=== PATIENT | female | born 1990 | race Caucasian/White ===

== ENCOUNTER 2017-08-23 23:18 | Emergency (ER) | payer SELFPAY ==
[2017-08-23] MEDS ORDERED: NS 1,000 ML IV ONE ×2 (23:39)
[2017-08-23] MEDS ORDERED: PROMETHAZINE HCL 25 MG/ML INJ IVP ONE (23:39)
--- NOTE | 2017-08-23 23:39 | EDPHY ---
H & P Stated Complaint: n, vomiting all day, abd pain Source: Patient Exam Limitations: No limitations - Personal History LMP (Females 10-55): Irregular Current Tetanus Diphtheria and Acellular Pertussis (TDAP): Yes - Medical/Surgical History Hx Asthma: No Hx Chronic Respiratory Disease: No Hx Diabetes: No Hx Cardiac Disease: No Hx Renal Disease: No Hx Cirrhosis: No Hx Alcoholism: No Hx HIV/AIDS: No Hx Splenectomy or Spleen Trauma: No Other PMH: denies - Social History Smoking Status: Never smoked Time Seen by Provider: 08/23/17 23:38 HPI/ROS: HPI: This is a 27-year-old female who presents with Chief Complaint: n, vomiting all day, abd pain Location: Left flank Quality: Sharp, constant pain Duration: starting at 7:00 a.m. Signs and Symptoms: no fever, + nausea, + vomiting, no hematemesis, no blood in stool, no abdominal bloating, no diarrhea, no back pain, no urinary symptoms, no vaginal bleeding/discharge, no indigestion, no chest pain, no shortness of breath Timing: Acute, constant Severity: 11/20 Context: Patient presents with sudden onset of constant, nonradiating left flank pain that started around 7:00 a.m. This morning accompanied by nausea and vomiting of bile and stomach contents x5 to 6 times. Has irregular menses. Patient has a history of IBS an appendectomy. She also states that she has kidney stones but "they are never seen on CT scan." Patient denies any urinary symptoms, hematuria, burning with urination. She has not ate or drank anything today. Patient reports that she had a normal bowel movement yesterday. Patient reports that she is under considerable stress which makes her IBS flare as she recently moved to the area from [facility] in the process of trying to find a job. She reports that Phenergan tends to help her more than Zofran. She is extremely concerned about cost. No recent antibiotic use. Modifying Factors: None Comment: ROS: see HPI Constitutional: No fever, no chills, no weight loss Eyes: No blurred vision Respiratory: No shortness of breath, no cough Cardiovascular: No chest pain, no palpitations Gastrointestinal: + nausea, + vomiting, no diarrhea, no hematemesis, no blood in stool Genitourinary: No dysuria, no blood in urine Extremities: No myalgias, no edema Neurologic: No weakness, no numbness Skin: No rashes, no petechiae Hematologic: No bruising, no bleeding MEDICAL/SURGICAL/SOCIAL HISTORY: Medical history: Irritable bowel syndrome Surgical history: Appendectomy Social history: Single. Nonsmoker. Patient is originally from [place]. Family history noncontributory. CONSTITUTIONAL: Patient is buccal over and position crying on the ER stretcher, nontoxic in appearance awake and alert, no obvious distress HEENT: Atraumatic and normocephalic, PERRL, EOMI. Nares patent; no rhinorrhea; no nasal mucosal edema. Tympanic membranes clear. Oropharynx clear, no exudate and moist pink mucosa. Airway patent. No lymphadenopathy. No meningismus. Cardiovascular: Normal S1/S2, regular rate, regular rhythm, without murmur rub or gallop. PULMONARY/CHEST: Symmetrical and nontender. Clear to auscultation bilaterally. Good air movement. No accessory muscle usage. ABDOMEN: Soft, nondistended, left flank moderate tenderness, no rebound, no guarding, no peritoneal signs, no masses or organomegaly. + left CVAT. Bowel sounds heard x4 quadrants EXTREMITIES: 2/2 pulses, strength 5/5, no deformities, no clubbing, no cyanosis or edema. NEUROLOGICAL: no focal neuro deficits. GCS 15. SKIN: Warm and dry, no erythema. no rash. Good capillary refill. (Brigitte Garces) Constitutional: Initial Vital Signs Temperature (C) 36.3 C 08/23/17 23:20 Heart Rate 80 08/23/17 23:20 Respiratory Rate 20 08/23/17 23:20 Blood Pressure 132/95 H 08/23/17 23:20 O2 Sat (%) 96 08/23/17 23:20 O2 Delivery Mode Room Air O2 (L/minute) 2 Allergies/Adverse Reactions: No Known Allergies Allergy (Unverified 08/23/17 23:20) Home Medications: Medication Instructions Recorded Dicyclomine [Bentyl 20 MG (*)] 20 mg PO QID PRN #12 tab 08/24/17 Promethazine HCl [Phenergan 25mg 25 mg PO Q6 PRN #12 tab 08/24/17 (*)] Medical Decision Making ED Course/Re-evaluation: Urinalysis, labs, IV fluids, CT abdomen and pelvis scan without contrast, IV medications ordered Vital signs reviewed upon arrival and are stable. No systemic signs. 2350: Patient given 1 L normal saline, IV promethazine 12.5 mg, IV Haldol 2.5 mg 0038: Labs reviewed. No signs of anemia/platelet dysfunction/JIMBO/elevated LFTs /electrolyte imbalance/pancreatitis. WBC 11.43 K with left shift. 0100: Called by radiologist who advised that CT abdomen and pelvis scan shows no acute abdominal process. 0115: Notified by nurse that patient had just called to report that her pain is returning in her left flank. Patient still has not given urine sample. 0136: Reassessed patient who is sleeping soundly. Upon waking her up patient complains of having nausea. I gave her IV promethazine 12.5 mg as well as a prepack for Promethazine and Bentyl to be discharged home. She will establish care at the [facility]. Patient is still refusing to give urine sample. This patient was seen under the supervision of my secondary supervising physician. I evaluated care for this patient independently. Discussed this patient with Dr. Murillo. (Brigitte Garces) PHYSICIAN DOCUMENTATION: The patient was evaluated and managed by the Physician Bundle Breaker. My co- signature indicates that I have reviewed this chart and I agree with the findings and plan of care as documented. I am the secondary supervising physician. (Faiza Murillo) Differential Diagnosis: Flank pain including but not limited to musculoskeletal causes, kidney stone, pyelonephritis, shingles, and intra-abdominal causes such as diverticulitis and appendicitis. (Brigitte Garces) - Data Points Laboratory Results: Laboratory Results 08/24/17 00:01 08/24/17 00:01 08/24/17 08/24/17 08/24/17 00:01 00:01 00:01 WBC 11.43 10^3/uL H 10^3/uL (3.80-9.50) RBC 4.51 10^6/uL 10^6/uL (4.18-5.33) Hgb 13.5 g/dL g/dL (12.6-16.3) Hct 39.8 % % (38.0-47.0) MCV 88.2 fL fL (81.5-99.8) MCH 29.9 pg pg (27.9-34.1) MCHC 33.9 g/dL g/dL (32.4-36.7) RDW 13.2 % % (11.5-15.2) Plt Count 357 10^3/uL 10^3/uL (150-400) MPV 10.8 fL fL (8.7-11.7) Neut % (Auto) 87.7 % H % (39.3-74.2) Lymph % (Auto) 9.1 % L % (15.0-45.0) [place] % (Auto) 2.8 % L % (4.5-13.0) Eos % (Auto) 0.0 % L % (0.6-7.6) Baso % (Auto) 0.1 % L % (0.3-1.7) Nucleat RBC Rel Count 0.0 % % (0.0-0.2) Absolute Neuts (auto) 10.03 10^3/uL H 10^3/uL (1.70-6.50) Absolute Lymphs (auto) 1.04 10^3/uL 10^3/uL (1.00-3.00) Absolute Monos (auto) 0.32 10^3/uL 10^3/uL (0.30-0.80) Absolute Eos (auto) 0.00 10^3/uL L 10^3/uL (0.03-0.40) Absolute Basos (auto) 0.01 10^3/uL L 10^3/uL (0.02-0.10) Absolute Nucleated RBC 0.00 10^3/uL 10^3/uL (0-0.01) Immature Gran % 0.3 % % (0.0-1.1) Immature Gran # 0.03 10^3/uL 10^3/uL (0.00-0.10) Sodium 142 mEq/L mEq/L (135-145) Potassium 3.7 mEq/L mEq/L (3.3-5.0) Chloride 103 mEq/L mEq/L (97-110) Carbon Dioxide 21 mEq/l L mEq/l (22-31) Anion Gap 18 mEq/L H mEq/L (8-16) BUN 14 mg/dL mg/dL (7-23) Creatinine 0.6 mg/dL mg/dL (0.6-1.0) Estimated GFR > 60 Glucose 137 mg/dL H mg/dL (70-100) Calcium 10.2 mg/dL mg/dL (8.5-10.4) Total Bilirubin 0.6 mg/dL mg/dL (0.1-1.4) Conjugated Bilirubin 0.2 mg/dL mg/dL (0.0-0.5) Unconjugated Bilirubin 0.4 mg/dL mg/dL (0.0-1.1) AST 23 IU/L IU/L (14-46) ALT 23 IU/L IU/L (9-52) Alkaline Phosphatase 88 IU/L IU/L (38-126) Total Protein 8.4 g/dL H g/dL (6.3-8.2) Albumin 4.9 g/dL g/dL (3.5-5.0) Lipase 39 IU/L IU/L (23-300) Beta HCG, Qual NEGATIVE Medications Given: Discontinued Medications Dicyclomine HCl (Bentyl) 20 mg PO EDNOW ONE Stop: 08/24/17 01:38 Last Admin: 08/24/17 02:07 Dose: 20 mg Haloperidol Lactate (Haldol Injection) 2.5 mg IVP EDNOW ONE Stop: 08/23/17 23:48 Last Admin: 08/23/17 23:58 Dose: 2.5 mg Sodium Chloride (Ns) 1,000 mls @ 0 mls/hr IV EDNOW ONE; Wide Open PRN Reason: Protocol Stop: 08/23/17 23:40 Last Admin: 08/23/17 23:58 Dose: 1,000 mls Sodium Chloride (Ns) 1,000 mls @ 0 mls/hr IV EDNOW ONE; Wide Open PRN Reason: Protocol Stop: 08/23/17 23:40 Last Admin: 08/23/17 23:59 Dose: 1,000 mls Ketorolac Tromethamine (Toradol) 15 mg IVP EDNOW ONE Stop: 08/24/17 01:16 Last Admin: 08/24/17 01:16 Dose: 15 mg Ondansetron HCl (Zofran Odt) 4 mg PO EDNOW ONE Stop: 08/24/17 02:38 Last Admin: 08/24/17 02:43 Dose: Not Given Ondansetron HCl (Zofran) 4 mg IVP EDNOW ONE Stop: 08/24/17 02:42 Last Admin: 08/24/17 02:42 Dose: 4 mg Promethazine HCl (Phenergan) 12.5 mg IVP EDNOW ONE Stop: 08/23/17 23:40 Last Admin: 08/23/17 23:58 Dose: 12.5 mg Promethazine HCl (Phenergan) 12.5 mg IVP ONCE ONE Stop: 08/24/17 01:36 Last Admin: 08/24/17 01:41 Dose: 12.5 mg Promethazine HCl (Phenergan 25 Mg Prepack #4) 1 btl TAKEHOME EDNOW ONE Stop: 08/24/17 02:37 Last Admin: 08/24/17 02:42 Dose: 1 btl Departure - Departure Disposition: Home, Routine, Self-Care Clinical Impression: Chronic abdominal pain, Acute left flank pain IBS (irritable bowel syndrome) Qualifiers: Irritable bowel syndrome type: unspecified Qualified Code(s): K58.9 - Irritable bowel syndrome without diarrhea Condition: Good Instructions: Promethazine (Into the rectum), Abdominal Pain (ED), Chronic Abdominal Pain (ED) Additional Instructions: Consume a minimum of 8-10 glasses of water or electrolyte fluid replacement drinks that include Gatorade, Powerade, Pedialyte. Eat a bland diet for the next 48 hours and then slowly advance as tolerated. Take promethazine 1 tab every 6 hours as needed for nausea, vomiting. Take Bentyl every 6 hr as needed for GI distress. Establish care with primary care provider at [facility]. Referrals: [facility],. [Clinic] - As per Instructions Prescriptions: Dicyclomine [Bentyl 20 MG (*)] 20 mg PO QID PRN #12 tab PRN Reason: Gi Distress Promethazine HCl [Phenergan 25mg (*)] 25 mg PO Q6 PRN #12 tab PRN Reason: Nausea/Vomiting, Use 1st
[2017-08-23] MEDS ORDERED: HALOPERIDOL LACT 5 MG/ML INJ IVP ONE (23:47)
[2017-08-24 00:16] LABS: PLATELET COUNT 357 10^3/uL (150-400)
[2017-08-24] MEDS ORDERED: KETOROLAC 15 MG/1 ML SDV ONE (01:15)
[2017-08-24] MEDS ORDERED: KETOROLAC 15 MG/1 ML SDV IVP ONE (01:15)
[2017-08-24] MEDS ORDERED: PROMETHAZINE HCL 25 MG/ML INJ IVP ONE (01:35)
[2017-08-24] MEDS ORDERED: DICYCLOMINE 10 MG CAP PO ONE (01:37)
[2017-08-24] MEDS ORDERED: PROMETHAZINE 25 MG PREPACK #4 BTL TAKEHOME ONE (02:36)
[2017-08-24] MEDS ORDERED: ONDANSETRON DISINTEGRATING 4 MG TAB PO ONE (02:37)
[2017-08-24] MEDS ORDERED: ONDANSETRON 4 MG/2 ML VIAL ONE (02:40)
[2017-08-24] MEDS ORDERED: ONDANSETRON 4 MG/2 ML VIAL IVP ONE (02:41)
[2017-08-24 03:11] VITALS: BP 127/80
== END 2017-08-24 03:08 | disposition home or self-care (01) ==
DX: K58.9 Irritable bowel syndrome, unspecified (principal); G89.29 Other chronic pain; E86.9 Volume depletion, unspecified
CPT/HCPCS: 96374; J1630; J1885; J2405; J2550

== ENCOUNTER 2017-09-30 | Emergency (ER) | payer SELFPAY | END 2017-09-30 23:39 | disposition home or self-care (01) ==

== ENCOUNTER 2017-11-04 09:28 | Emergency (ER) | payer SELFPAY ==
[2017-11-04] MEDS ORDERED: NS 1,000 ML IV ONE (09:53)
[2017-11-04] MEDS ORDERED: PROMETHAZINE HCL 25 MG/ML INJ IVP ONE (09:53)
--- NOTE | 2017-11-04 09:53 | EDPHY ---
General - History Smoking Status: Never smoked Time Seen by Provider: 11/04/17 09:41 Narrative: CHIEF COMPLAINT: Abdominal pain, nausea vomiting HISTORY OF PRESENT ILLNESS: Patient is a prior vehicle with complaints of abdominal pain with nausea vomiting. This started earlier this morning when she awoke. It is described as a sharp, stabbing pain in the epigastrium right upper quadrant. She has vomited several times. She has no position of comfort. She has no fever. No chest pain or shortness of breath. She is actively vomiting during my HPI, limiting my ability to obtain history. She denies any other complaints. She denies any modifying factors. REVIEW OF SYSTEMS: 10 systems were reviewed and negative with the exception of the elements mentioned in the history of present illness. PCP: Located in [place] SPECIALISTS: None locally PAST MEDICAL HISTORY: Irritable bowel, scoliosis, ovarian cysts, "kidney problems" PAST SURGICAL HISTORY: Bilateral oophorectomy, nephrectomy, scoliosis correction SOCIAL HISTORY: Nonsmoker. Lives independently. FAMILY HISTORY: Noncontributory EXAMINATION: General Appearance: Alert, no distress, actively vomiting Head: normocephalic, atraumatic Eyes: Pupils equal and round, no conjunctival pallor or injection ENT, Mouth: Mucous membranes moist Neck: Normal inspection, supple, non-tender Respiratory: Lungs are clear to auscultation Cardiovascular: Regular rate and rhythm Gastrointestinal: Abdomen is soft and nondistended. There is mild tenderness in the right upper quadrant epigastrium. No guarding. No tympany. No rigidity. No CVA tenderness. Bowel sounds are present all 4 quadrants. Back: Scoliotic appearance. non-tender, no bony abnormalities Neurological: A&O, nonfocal, normal gait Skin: Warm and dry, no rash no petechiae or purpura Extremities: Nontender, no pedal edema Psychiatric: Mood and affect normal DIFFERENTIAL DIAGNOSES: Including but not limited to irritable bowel, gastritis, enteritis, colitis, cholecystitis, cholelithiasis, MDM: 9:45 a.m. Epigastric and right upper quadrant abdominal pain with nausea vomiting since this morning. She has a history of cyclical vomiting and irritable bowel syndrome, and she does not know which 1 this feels like to her. She is actively vomiting while I am in the room and complaining of pain. Difficult to complete my HPI, thus I have ordered pain medication and will re-evaluate shortly. Vital signs limits. Her abdomen is nonrigid and nondistended on limited exam. 10:45 a.m. Patient re-evaluated. She has improved level of pain. Laboratory studies are pending. 11:30 a.m. CBC and chemistry unremarkable. LFTs unremarkable. I re-evaluated the patient. Her pain is significantly improved but her nausea vomiting persist. She was dry heaving well as in the room, thus I will order Haldol and Ativan. Repeat abdominal exam is benign at this time. 12:30 p.m. Patient re-evaluated. She is no longer vomiting. Pain controlled. I do feel she is stable for discharge home if she can tolerate p.o. Intake. 1:00 p.m. Patient has tolerated p.o. Intake without difficulty. We discussed discharge home with multiple medications for her nausea. We discussed primary care physician and GI follow-up for her ongoing diagnoses.. I provided the on-call information for her as she has not yet established anyone here. We discussed ED precautions for any return of any pain, fever or intractable vomiting. She is comfortable this plan. She is drinking water and discharged home stable condition. SUPERVISION: This patient was independently evaluated without direct involvement of or examination by the attending physician. CONSULTATION: None. GI and primary care referral (Chaka Chance) Discussion: The patient was evaluated and managed by the Physician Senior Manager. My co- signature indicates that I have reviewed this chart and I agree with the findings and plan of care as documented. I am the secondary supervising physician. (Sharon Solano) - Objective Vital Signs: Initial Vital Signs Temperature (C) 36.5 C 11/04/17 09:32 Heart Rate 90 11/04/17 09:32 Respiratory Rate 18 11/04/17 09:32 Blood Pressure 126/93 H 11/04/17 09:32 O2 Sat (%) 99 11/04/17 09:32 O2 Delivery Mode Room Air Allergies/Adverse Reactions: No Known Allergies Allergy (Unverified 11/04/17 09:34) Home Medications: Medication Instructions Recorded Ondansetron Odt [Zofran Odt 4 mg 4 mg PO Q4 PRN #10 tab 09/25/17 (*)] Promethazine HCl 25 mg PO Q6-8PRN PRN #10 tablet 09/30/17 LORazepam [Ativan] 1 mg PO Q8 PRN #6 tablet 11/04/17 Ondansetron Odt [Zofran Odt 4 mg 4 mg PO Q6 PRN #12 tab 11/04/17 (*)] Promethazine HCl [Phenergan 25mg 25 mg PO Q8 PRN #12 tab 11/04/17 (*)] Laboratory Results: Laboratory Results 11/04/17 10:31 11/04/17 10:31 Medications Given: Discontinued Medications Famotidine (Pepcid) 20 mg IVP EDNOW ONE Stop: 11/04/17 11:36 Last Admin: 11/04/17 11:46 Dose: 20 mg Haloperidol Lactate (Haldol Injection) 2.5 mg IVP EDNOW ONE Stop: 11/04/17 11:36 Last Admin: 11/04/17 11:46 Dose: 2.5 mg Sodium Chloride (Ns) 1,000 mls @ 0 mls/hr IV EDNOW ONE; Wide Open PRN Reason: Protocol Stop: 11/04/17 09:54 Last Admin: 11/04/17 10:06 Dose: 1,000 mls Lorazepam (Ativan Injection) 1 mg IVP EDNOW ONE Stop: 11/04/17 11:36 Last Admin: 11/04/17 11:46 Dose: 1 mg Morphine Sulfate (Morphine) 4 mg IVP EDNOW ONE Stop: 11/04/17 09:54 Last Admin: 11/04/17 10:07 Dose: 4 mg Promethazine HCl (Phenergan) 12.5 mg IVP EDNOW ONE Stop: 11/04/17 09:54 Last Admin: 11/04/17 10:06 Dose: 12.5 mg Departure - Departure Disposition: Home, Routine, Self-Care Clinical Impression: Cyclical vomiting, Irritable bowel, Gastritis, Nausea & vomiting Condition: Good Instructions: Gastritis (ED), Irritable Bowel Syndrome (ED), Clear Liquid Diet (ED), Acute Nausea and Vomiting (ED) Additional Instructions: 1. Medications as prescribed as needed 2. Clear liquid diet as tolerated, advancing slowly as tolerated 3. ED precautions for any return of vomiting, fever or return of abdominal pain Referrals: Nima Browne MD [Medical Doctor] - As per Instructions Nathaniel Correia MD [[facility] Primary Care Provider] - As per Instructions Stand Alone Forms: Work Excuse Prescriptions: LORazepam [Ativan] 1 mg PO Q8 PRN #6 tablet PRN Reason: Anxiety Ondansetron Odt [Zofran Odt 4 mg (*)] 4 mg PO Q6 PRN #12 tab PRN Reason: Nausea/Vomiting, Use 1st Promethazine HCl [Phenergan 25mg (*)] 25 mg PO Q8 PRN #12 tab PRN Reason: Nausea/Vomiting, Use 1st
[2017-11-04 10:45] LABS: PLATELET COUNT 297 10^3/uL (150-400)
[2017-11-04] MEDS ORDERED: LORazepam 2 MG/ML INJ IVP ONE (11:35)
[2017-11-04] MEDS ORDERED: FAMOTIDINE 20 MG/2 ML SDV IVP ONE (11:35)
[2017-11-04] MEDS ORDERED: HALOPERIDOL LACT 5 MG/ML INJ IVP ONE (11:35)
[2017-11-04 13:15] VITALS: BP 118/80
== END 2017-11-04 13:23 | disposition home or self-care (01) ==
DX: K29.70 Gastritis, unspecified, without bleeding (principal); K58.9 Irritable bowel syndrome, unspecified; Z90.722 Acquired absence of ovaries, bilateral; Z90.5 Acquired absence of kidney; E86.9 Volume depletion, unspecified
CPT/HCPCS: 96374; J1630; J2060; J2270; J2550